=== PATIENT | male | born 1945 | race Caucasian/White ===

== ENCOUNTER → 2016-08-07 | Outpatient (CLI) | payer MEDICARE, OTHER ==
[~2016-08-07] MED LIST: CHLORTHALIDONE25 MG PO; CLONIDINE HCL0.1 MG PO; CLOPIDOGREL75 MG PO; CO Q-10200 MG PO; CRESTOR40 MG PO; FLOMAX0.4 M1 PO; FOLIC ACID PO; KRILL OIL 5001 EACH PO; LISINOPRIL20 MG PO; LORTAB 7.5-3251 EACH PO; METFORMIN HCL500 M1 PO; PAROXETINE HCL10 MG PO; PHENERGAN25 MG PO; PROTONIX PO; ZEBETA5 MG PO; ZOFRAN ODT4 MG PO
[2016-08-07 10:14] LABS: BILIRUBIN,TOTAL 1.4 mg/dL (0.2-2.0); BUN/CREATININE RATIO 22.22; CALCIUM SERUM 9.6 mg/dL (8.4-10.2); CREATININE SERUM 0.9 mg/dL (0.6-1.4); POTASSIUM 4.3 mmol/L (3.5-5.1); PROTEIN TOTAL SERUM 7.5 g/dL (6.0-8.3)
== END | disposition home or self-care (01) ==
LOC: SLAB 09:20
PROVIDERS: Nurse Practitioner
DX: R74.8 Abnormal levels of other serum enzymes (principal)
CPT/HCPCS: 36415; 80053

== ENCOUNTER → 2016-09-06 | Outpatient (CLI) | payer MEDICARE, OTHER ==
--- NOTE | ~2016-09-06 | MR165 ---
[facility] A Service of [facility] & [facility] RADIOLOGY TEXT RESULTS PATIENT: VERONIKA MACKEY LOCATION: [facility] : 43 UNIT #: [id number] AGE: [address]: MAI TERRY MD SEX: M ORDER DR: [id number] [place] [id number] O MR#: [id number] Acc #: [id number] NAME: VERONIKA MACKEY : 1945 SEX: M STUDY DATE/TIME: 09/06/2016 13:14 UNIT: [facility] ROOM: STUDY DESCRIPTION: MR Shoulder Wo Contrast Rt Attending Physician: Juanita Terry M.D. Referring Physician: Juanita Terry M.D. Ordering Physician: Juanita Terry M.D. Primary Care Physician: Juanita Terry M.D. MRI CENTER REPORT This report is preliminary unless electronic signature is present. EXAM MRI right shoulder, 09/06/2016 COMPARISON Right shoulder radiographs, 09/02/2016. HISTORY Order states right shoulder pain. Accidental fall and pain in the shoulder. Rule out rotator cuff tear. History sheet states fell 6 days with lawnmower and hit the pavement. Decreased range of motion. Injury 09/03/2016. FINDINGS There is very minimal acromioclavicular joint arthrosis with very minimal spurring and without capsuloligamentous thickening. There is a small amount of fluid in the AC joint probably due to a deficient or degenerated inferior capsuloligamentous complex with secondary fluid extension from the subacromial-subdeltoid bursa. Coracoacromial and coracoclavicular ligaments are intact. There is a recent-appearing large rotator cuff tear. Full thickness, full width supraspinatus tendon tear extends into a full thickness, near full width infraspinatus tendon tear (sparing minimal posterior fibers). The tendons are retracted to the level of the glenohumeral joint. There is marked fluid and inflammation in the subacromial-subdeltoid and subcoracoid bursae. There is also prominent perimuscular inflammation especially in the region of the infraspinatus and teres minor muscle. There is a grade 1 infraspinatus muscle strain with diffuse muscle edema. There is marked subscapularis tendinosis with probable disruption of the transverse humeral ligament. There is no full thickness subscapular tendon tear. There is medial dislocation of the longhead biceps tendon [facility] A Service of [facility] RADIOLOGY TEXT RESULTS PATIENT: VERONIKA MACKEY LOCATION: [facility] : 43 UNIT #: [id number] AGE: [address]: MAI TERRY MD SEX: M ORDER DR: which is marked tendinopathic but no torn. Rotator cuff muscles show no atrophy. Biceps anchor and superior labrum are within normal limits. There is a suspected posterior inferior quadrant labral tear which is age indeterminate. There is adjacent chondromalacia of the posterior inferior quadrant of the glenoid and the labral finding may be degenerative in etiology. Glenohumeral joint demonstrates a mild effusion with subtle debris or small loose bodies in the axillary recess. There is no marrow lesion or fracture. Humeral head articular cartilage attenuation is also compatible with glenohumeral mild arthrosis. IMPRESSION 1. The predominant abnormality is a recent-appearing large rotator cuff tear with full thickness, full width supraspinatus and full thickness near full width infraspinatus tendon tears with retraction detailed above. 2. Secondary subacromial-subdeltoid and subcoracoid bursitis. 3. Grade 1 infraspinatus muscle strain. 4. Longhead biceps high grade tendinosis and medial dislocation without a tear. 5. Disruption of transverse humeral ligament, likely accounting for the biceps tendon dislocation. There is marked subscapularis tendinosis without a tear. 6. Mild glenohumeral arthrosis and probable posterior inferior degenerative labral tear favored over an acute labral tear. 7. Glenohumeral mild effusion and subtle synovitis or debris in the axillary recess. 8. Minimal AC joint arthrosis detailed above. 9. No fracture. Dictated by... Cehrry M. Lewes, M.D. THIS IS AN ELECTRONICALLY VERIFIED REPORT Cherry Miranda M.D. at 09/07/2016 11:53 AM Nilda TD: 09/07/2016 09:35 JOB #: [id number] MRI CENTER REPORT Page 1 of 1
== END | disposition home or self-care (01) ==
LOC: SMRI 11:45
DX: M25.511 Pain in right shoulder (principal); S46.011A Strain of muscle(s) and tendon(s) of the rotator cuff of right shoulder, initial encounter; M75.51 Bursitis of right shoulder; M75.21 Bicipital tendinitis, right shoulder; S43.004A Unspecified dislocation of right shoulder joint, initial encounter; M75.81 Other shoulder lesions, right shoulder; M19.011 Primary osteoarthritis, right shoulder; M25.411 Effusion, right shoulder
CPT/HCPCS: 73221

== ENCOUNTER → 2016-09-20 | Outpatient (CLI) | payer MEDICARE, OTHER ==
--- NOTE | ~2016-09-20 | EKG ---
PATIENT: VERONIKA MACKEY UNIT #: [id number] Ventricular Rate: 58 BPM Atrial Rate: 58 BPM P-R Interval: 152 ms QRS Duration: 134 ms Q-T Interval: 426 ms QTC Calculation(Bezet): 418 ms P [place]: -14 degrees Calculated R [place]: -31 degrees Calculated T [place]: -48 degrees Diagnosis Line: Sinus bradycardia with sinus arrhythmia Diagnosis Line: Left axis deviation T wave abnormality, consider Diagnosis Line: anterior ischemia Diagnosis Line: Non-specific intra-ventricular conduction block Diagnosis Line: Inferior infarct (cited on or before 14-SEP-2015) Diagnosis Line: Poor R wave progression questionable lead position Diagnosis Line: or body habitus Diagnosis Line: Abnormal ECG Diagnosis Line: When compared with ECG of 14-SEP-2015 03:31, Diagnosis Line: Vent. rate has decreased BY 35 BPM Diagnosis Line: Questionable change in initial forces of Lateral Diagnosis Line: leads Diagnosis Line: T wave inversion no longer evident in Lateral Diagnosis Line: leads Diagnosis Line: Confirmed by EDDY WEINSTEIN MD ([id number]) on 09/21/2016 Diagnosis Line: 6:01:20 PM INTERPRETING MD: CORINNA OVERTON
[2016-09-20 12:48] LABS: HEMOGLOBIN 15.4 gm/dL (13.0-16.0); MEAN CELL VOLUME 94.6 FL (83-96); MEAN CORPUSCULAR HEMOGLOBIN 31.7 PG (28-34); MEAN CORPUSCULAR HGB CONC 33.6 g/dL (30-36); RED BLOOD COUNT 4.86 X10e (3.90-5.60); RED CELL DISTRIBUTION WIDTH 14.1 % (11.0-15.5)
[2016-09-20 13:19] LABS: ALBUMIN SERUM 4.2 g/dL (3.5-5.0); BILIRUBIN,TOTAL 0.9 mg/dL (0.2-2.0); BUN/CREATININE RATIO 21.11; CALCIUM SERUM 9.7 mg/dL (8.4-10.2); CREATININE SERUM 0.9 mg/dL (0.6-1.4); POTASSIUM 4.5 mmol/L (3.5-5.1)
== END | disposition home or self-care (01) ==
LOC: CAMB 11:48 → EDSTATUS 12:00 → CAMB 12:00
PROVIDERS: Specialist
DX: Z01.818 Encounter for other preprocedural examination (principal); K82.9 Disease of gallbladder, unspecified
CPT/HCPCS: 36415; 80053; 85027; 93005

== ENCOUNTER 2016-10-03 13:33 | Inpatient (IN) | payer MEDICARE, OTHER ==
--- NOTE | ~2016-10-03 | CR73 ---
[facility] A Service of [facility] & [facility] RADIOLOGY TEXT RESULTS PATIENT: VERONIKA MACKEY LOCATION: [place] [id number] : 44 UNIT #: [id number] AGE: [address]: Veronika Denny MD SEX: M ORDER DR: [id number] [facility] [address] [place], [place] [address] [id number] MR#: [id number] Acc #: [id number] NAME: VERONIKA MACKEY : 1945 SEX: M STUDY DATE/TIME: 10/03/2016 16:37 UNIT: [facility] ROOM: [facility] STUDY DESCRIPTION: CR Cholangiogram Operative Attending Physician: Veronika Denny M.D. Ordering Physician: Veronika Denny M.D. Primary Care Physician: Juanita Vital M.D. MEDICAL IMAGING REPORT This report is preliminary unless electronic signature is present EXAM Laparoscopic cholecystectomy INDICATION imaging during cholecystectomy FINDINGS The study was done by Dr. Denny. Total of two images were obtained. Fluoro time was 48 seconds. Both images show opacification of the gallbladder with flow of contrast through the cystic duct and opacification of the extrahepatic biliary system. The duodenum is not included and there is no flow into the duodenum demonstrated on the study. The common bile duct is not dilated. There appears to be a small amount of contrast leaking around the gallbladder. Dictated by... Adriano Hernandez M.D. THIS IS AN ELECTRONICALLY VERIFIED REPORT Adriano Hernandez M.D. at 10/05/2016 2:00 PM Brayden TD: 10/04/2016 14:12 JOB #: [id number] MEDICAL IMAGING REPORT Page 1 of 1 COPY
--- NOTE | ~2016-10-03 | OR ---
Unit #: [id number] #: [id number] Patient: VERONIKA MACKEY [id number] [facility] [address] [place], [place] [address] [id number] MR#: [id number] NAME: VERONIKA MACKEY ROOM: [facility] Date of Procedure: 10/03/2016 Admission Date: 10/03/2016 Surgeon: Veronika Denny M.D. : 1945 Attending Physician: Veronika Denny M.D. Primary Care Physician: Christy Vital OPERATIVE REPORT PREOPERATIVE DIAGNOSIS Gallstone pancreatitis. POSTOPERATIVE DIAGNOSIS Gallstone pancreatitis. PROCEDURES PERFORMED Laparoscopic cholecystectomy with intraoperative cholangiogram. ANESTHESIA General endotracheal anesthesia. ESTIMATED BLOOD LOSS 100 mL. INDICATIONS FOR PROCEDURE Mr. Luis Ramos is a 71-year-old gentleman with a history of heart disease, who has had 2 episodes of severe gallstone pancreatitis in [place]. An MRCP noted the presence of gallstones. 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 Preoperative liver chemistries were normal. DESCRIPTION OF PROCEDURE The patient was admitted to [facility], positively identified, transported to the operating room, and after induction of general endotracheal anesthesia, he received IV antibiotics per SCIP protocol. His abdominal wall hair was clipped. SCDs were placed. He was prepped and draped in usual sterile fashion. A 5-mm infraumbilical incision was made. Veress needle was placed. Pneumoperitoneum was created. Then, a 5-mm trocar was placed. Laparoscope was introduced into the peritoneal cavity under direct vision. The epigastric and lateral ports were placed. He had some cirrhotic changes to his liver and he had a great deal of adhesions between omentum and the liver edge and the gallbladder. Using sharp and cautery dissection, the adhesions were taken down and the dome of the gallbladder was identified. The gallbladder wall was very thickened and the gallbladder was contracted. There was a great deal of scar tissue around the gallbladder and I cautiously and carefully dissected out the gallbladder to caught hold the scar tissue down from the liver and continue to dissect down towards the triangle of Calot. There was a tremendous amount of scarring and edema in the triangle of Calot, even though he had not had an episode of pancreatitis for several months. Unit #: [id number] #: [id number] Patient: VERONIKA MACKEY We continued to dissect down the gallbladder and continued dissected out the triangle of Calot. I was able to create the triangle of Calot liver window, but there was so much scar tissue, it was very difficult to discern exactly the cystic duct, gallbladder, cystic duct-common duct junction, and fully identified the cystic artery. The scar tissue was so thick and hard. It was very difficult to dissect through at this point. Because of the difficulty of the anatomy, I took the gallbladder down from the liver and dissected it free completely, identified the infundibulum of the gallbladder definitively and then placed a cholangiocatheter into the infundibulum of the gallbladder and shot a cholangiogram. The cholangiogram confirmed that I had dissected this out properly and identified the position of the cystic duct. The cystic duct was actually not dilated and probably it was encased in the scar tissue. The common bile duct was intact and emptied well and was of normal caliber, now that I had ensured the cystic duct anatomy because of all the thick scarring, I did not want to tear the duct, but trying to dissected out further and caused an avulsion of the cystic duct, so the scar tissue and the cystic duct were clamped, divided, and ligated using an Endo OTTO stapler. The gallbladder was then put in an EndoCatch bag and brought out through the epigastric port. I irrigated and ensured and it appears though there was good hemostasis. However due to his chronic use of Plavix and the liver changes, I opted to put some FloSeal in the liver bed to ensure that there would be good hemostasis in the liver bed. Through a lateral 5 mm port, a Russel-Call drain was placed in the subhepatic space and secured with 2-0 silk suture. I then closed the epigastric fascial defect with a neoClose device and the closure was airtight. The pneumoperitoneum was reduced as I removed laparoscope and trocars. 0.5% Marcaine with epinephrine was infiltrated into each trocar site and the skin was closed with sterile skin fito. Dry sterile bandages were placed. The patient was transported to recovery in stable condition. There was no family available at the end of the case to discuss the findings with. He will be admitted overnight for observation. Dictated by... Martina Melendez/charito TD: 10/04/2016 03:25 JOB #: [id number] OPERATIVE REPORT Page 1 of 1 X Veronika Denny MD PROCEDURE OPERATIVE NOTE
[~2016-10-03 13:33] MED LIST changes: -FLOMAX0.4 M1 PO; -LORTAB 7.5-3251 EACH PO
[2016-10-04 05:00] LABS: BASOPHIL% 0.2 % (0-2.5); EOSINOPHIL% 0.1 % (0.0-7.0); LYMPHOCYTE# 0.5 X10e3 (1.0-3.5); MEAN CORPUSCULAR HEMOGLOBIN 31.4 PG (28-34); MEAN CORPUSCULAR HGB CONC 32.7 g/dL (30-36); MEAN PLATELET VOLUME 9.6 FL (6.5-11.5); MONOCYTE# 1.1 X10e3 (0-1.0); MONOCYTE% 6.8 % (3.0-12.0); NEUTROPHIL# 14.4 X10e3 (1.5-7.1); NEUTROPHIL% 89.9 % (40-75); PLATELET COUNT 141 X10e3 (140-420); RED BLOOD COUNT 4.79 X10e (3.90-5.60)
[2016-10-04 05:01] LABS: DIFF IND YES
[2016-10-04 05:23] LABS: PLATELET ESTIMATE DECREASED (NORMAL)
[2016-10-04 05:24] LABS: RBC NORMAL YES
[2016-10-04 05:26] LABS: ALBUMIN SERUM 3.4 g/dL (3.5-5.0); BILIRUBIN,TOTAL 1.9 mg/dL (0.2-2.0); BUN/CREATININE RATIO 25.55; CALCIUM SERUM 8.5 mg/dL (8.4-10.2); CREATININE SERUM 0.9 mg/dL (0.6-1.4); MAGNESIUM 1.4 mg/dL (1.6-3.0); PHOSPHOROUS 3.6 mg/dL (2.5-4.6); POTASSIUM 4.2 mmol/L (3.5-5.1); PROTEIN TOTAL SERUM 5.9 g/dL (6.0-8.3)
[2016-10-05 03:48] LABS: HEMATOCRIT 40.7 % (38.0-50.0); HEMOGLOBIN 13.3 gm/dL (13.0-16.0); MEAN CELL VOLUME 96.3 FL (83-96); MEAN CORPUSCULAR HEMOGLOBIN 31.4 PG (28-34); MEAN CORPUSCULAR HGB CONC 32.7 g/dL (30-36); MEAN PLATELET VOLUME 9.2 FL (6.5-11.5); RED BLOOD COUNT 4.23 X10e (3.90-5.60); RED CELL DISTRIBUTION WIDTH 14.2 % (11.0-15.5); WHITE BLOOD COUNT 12.7 X10e3 (4.0-10.5)
[2016-10-05 04:13] LABS: BILIRUBIN,TOTAL 1.5 mg/dL (0.2-2.0); BUN/CREATININE RATIO 19.28; CALCIUM SERUM 8.6 mg/dL (8.4-10.2); CREATININE SERUM 1.4 mg/dL (0.6-1.4); GLOM FILT RATE Estimated 49.9 mL/min (>60); MAGNESIUM 2.1 mg/dL (1.6-3.0); PHOSPHOROUS 3.1 mg/dL (2.5-4.6); POTASSIUM 3.9 mmol/L (3.5-5.1); PROTEIN TOTAL SERUM 5.4 g/dL (6.0-8.3)
[2016-10-05] MEDS ORDERED: LORTAB 7.5-3251 EACH PO (16:17)
[2016-10-05] MEDS ORDERED: FLOMAX0.4 M1 PO (16:18)
== END 2016-10-05 18:10 | disposition home or self-care (01) | DRG 419 ==
LOC: CSUR 13:33 → C4C 17:15 → CSUR 18:32 → C4C 10-05 18:10
PROVIDERS: Specialist
PROC: 0FT44ZZ Resection of Gallbladder, Percutaneous Endoscopic Approach (ICD-10-PCS; principal; 2016-10-03 14:30)
PROC: BF03YZZ Plain Radiography of Gallbladder and Bile Ducts using Other Contrast (ICD-10-PCS; 2016-10-03 14:30)
DX: K85.10 Biliary acute pancreatitis without necrosis or infection (principal); E11.9 Type 2 diabetes mellitus without complications; I25.10 Atherosclerotic heart disease of native coronary artery without angina pectoris; Z79.84 Long term (current) use of oral hypoglycemic drugs; Z95.1 Presence of aortocoronary bypass graft; R33.9 Retention of urine, unspecified
CPT/HCPCS: 74300; 76000; 80053; 82150; 82947; 83690; 83735; 84100; 84295; 85025; 85027; 88304; 94760; J0330; J0360; J0690; J1650; J2250; J2270; J2405; J2543; J3010; J3475

== ENCOUNTER → 2016-10-13 | Outpatient (CLI) | payer MEDICARE, OTHER ==
[~2016-10-13] MED LIST changes: +FLOMAX0.4 M1 PO; +LORTAB 7.5-3251 EACH PO
[2016-10-13 12:22] LABS: HEMATOCRIT 39.1 % (38.0-50.0); HEMOGLOBIN 12.8 gm/dL (13.0-16.0); MEAN CELL VOLUME 95.7 FL (83-96); MEAN CORPUSCULAR HEMOGLOBIN 31.4 PG (28-34); MEAN CORPUSCULAR HGB CONC 32.8 g/dL (30-36); MEAN PLATELET VOLUME 8.5 FL (6.5-11.5); RED BLOOD COUNT 4.08 X10e (3.90-5.60); RED CELL DISTRIBUTION WIDTH 13.9 % (11.0-15.5); WHITE BLOOD COUNT 11.4 X10e3 (4.0-10.5)
[2016-10-13 12:59] LABS: BILIRUBIN,TOTAL 1.1 mg/dL (0.2-2.0); CALCIUM SERUM 9.2 mg/dL (8.4-10.2); CREATININE SERUM 0.8 mg/dL (0.6-1.4); GLOM FILT RATE Estimated 89.3 mL/min (>60); POTASSIUM 4.2 mmol/L (3.5-5.1); PROTEIN TOTAL SERUM 6.3 g/dL (6.0-8.3)
== END | disposition home or self-care (01) ==
LOC: CLAB 11:33
PROVIDERS: Specialist
DX: R11.0 Nausea (principal)
CPT/HCPCS: 36415; 80053; 82465; 85027

== ENCOUNTER → 2016-11-24 | Outpatient (CLI) | payer MEDICARE, OTHER ==
[2016-11-24 09:46] LABS: ALBUMIN SERUM 4.1 g/dL (3.5-5.0); BILIRUBIN,TOTAL 0.8 mg/dL (0.2-2.0); BUN/CREATININE RATIO 21.25; CALCIUM SERUM 9.5 mg/dL (8.4-10.2); CREATININE SERUM 0.8 mg/dL (0.6-1.4); GLOM FILT RATE Estimated 89.3 mL/min (>60); POTASSIUM 4.2 mmol/L (3.5-5.1); PROTEIN TOTAL SERUM 7.3 g/dL (6.0-8.3)
== END | disposition home or self-care (01) ==
LOC: SLAB 09:09
PROVIDERS: Internal Medicine Cardiovascular Disease
DX: I10 Essential (primary) hypertension (principal); E78.5 Hyperlipidemia, unspecified
CPT/HCPCS: 36415; 80053; 80061

== ENCOUNTER → 2017-01-11 | Outpatient (CLI) | payer MEDICARE, OTHER ==
[2017-01-11 12:40] LABS: ALBUMIN SERUM 4.4 g/dL (3.5-5.0); BILIRUBIN, DIRECT 0.2 mg/dL (0.0-0.2); BILIRUBIN,INDIRECT 1.3 mg/dL (0.0-0.9); BILIRUBIN,TOTAL 1.5 mg/dL (0.2-2.0); PROTEIN TOTAL SERUM 6.8 g/dL (6.0-8.3)
== END | disposition home or self-care (01) ==
LOC: SLAB 11:21
PROVIDERS: Internal Medicine Cardiovascular Disease
DX: Z51.81 Encounter for therapeutic drug level monitoring (principal); Z79.899 Other long term (current) drug therapy
CPT/HCPCS: 36415; 80076